=== PATIENT | female | born 1985 | race Caucasian/White ===

== ENCOUNTER → 2020-01-18 14:00 | Outpatient (CLI) | payer BC, SELFPAY ==
[2020-01-18 14:37] LABS: Add Manual Diff / Slide Review NO; Basophils Absolute Auto 0 /uL (0-100); Basophils Percent Auto 0.3 % (0-2); Eosinophils Absolute Auto 0 /uL (0-450); Eosinophils Percent Auto 0.1 % (2-4); Hematocrit 35.8 % (36-46); Hemoglobin 12.3 g/dL (12.0-16.0); Lymphocytes Absolute Auto 900 /uL (1100-4500); Lymphocytes Percent Auto 14.9 % (25-40); Mean Corpuscular HGB Conc 34.3 % (30-36); Mean Corpuscular Hemoglobin 30.1 PG (26-34); Mean Corpuscular Volume 87.6 fL (80-100); Monocytes Absolute Auto 300 /uL (0-900); Monocytes Percent Auto 5.2 % (3-14); Neutrophils Absolute Auto 5000 /uL (1500-7000); Neutrophils Percent Auto 79.5 % (50-75); Platelet Count 246 X10^3/uL (150-400); Red Blood Cell Count 4.09 X10^6/uL (4.0-5.2); Red Cell Distribution Width 13.5 % (11.6-14.8); White Blood Cell Count 6.3 X10^3/uL (4.5-11.0)
[2020-01-18 14:48] LABS: Appearance Urine UA CLEAR; Bilirubin Urine UA NEGATIVE (NEGATIVE); Color Urine UA YELLOW; Glucose Urine UA NEGATIVE (Negative); Ketones Urine UA NEGATIVE (NEGATIVE); Leukocyte Esterase Urine UA TRACE (NEGATIVE); Nitrite Urine UA NEGATIVE (Negative); Occult Blood Urine UA TRACE-LYSED (Negative); Protein Urine UA NEGATIVE (Negative); Specific Gravity Urine UA 1.015 (1.000-1.035); Urobilinogen Urine UA 0.2 E.U./dL (0.2)
[2020-01-18 14:53] LABS: RBC Urine None Seen (0-5/HPF)
[2020-01-18 14:56] LABS: Bacteria Urine Few (2-10); Culture Indicated Urine Cult Not Indicated; Mucus Urine 1+ (Negative); Squamous Epithelial Cell Urine 10-30 /HPF (0-5/HPF); WBC Urine 1-5/HPF (0-5/HPF)
[2020-01-19 05:45] LABS: RPR Screen Non Reactive (Non Reactive)
[2020-01-19 08:09] LABS: Varicella IgG Antibody 2739 index (Immune >165)
[2020-01-20 19:37] LABS: Hepatitis B Surface Antigen NEGATIVE s/c (NEGATIVE); Rubella Antibody IgG 26.5 IU/mL (>15)
[2020-01-20 19:57] LABS: Hep C Virus Ab w/Reflex Quant NEGATIVE s/c (NEGATIVE)
[2020-01-21 16:58] LABS: HIV 1 & 2 Ab/Ag 4th Gen Combo NEGATIVE (NEGATIVE)
== END ==
PROVIDERS: PCP Naturopath; Referring Provider Obstetrics & Gynecology; Visit Provider Obstetrics & Gynecology
DX: Z34.81 Encounter for supervision of other normal pregnancy, first trimester (principal)
CPT/HCPCS: 36415; 80055; 81003; 81015; 86787; 86803; 86850; 86900; 86901; 87077; 87086; 87389

== ENCOUNTER → 2020-01-25 13:10 | Outpatient (CLI) | payer BC, SELFPAY | PROVIDERS: PCP Naturopath; Referring Provider Family Medicine; Visit Provider Family Medicine | DX: Z34.81 Encounter for supervision of other normal pregnancy, first trimester (principal) | CPT/HCPCS: 87086 ==

== ENCOUNTER → 2020-03-06 14:19 | Outpatient (CLI) | payer BC, SELFPAY ==
[2020-03-08 20:36] LABS: AFP, Serum 30.5 ng/mL (.); Estriol, Free 0.51 ng/mL (.); Inhibin A, Dimeric 291.97 pg/mL (.); Inhibin A, MoM 1.71 (.); Maternal Ethnicity Caucasian (.); Maternal Weight 144 lbs (.); Number of Fetuses No (.); OSBR Risk 1 IN 10000 (.); Results Report (.); Test Results *Screen Positive* (.); hCG, Serum 138237 mIU/mL (.)
== END ==
PROVIDERS: PCP Naturopath; Referring Provider Family Medicine; Visit Provider Family Medicine
DX: Z34.81 Encounter for supervision of other normal pregnancy, first trimester (principal); Z3A.13 13 weeks gestation of pregnancy
CPT/HCPCS: 36415; 82105; 82677; 84702; 86336

== ENCOUNTER → 2020-03-14 15:00 | Outpatient (CLI) | payer BC, SELFPAY ==
[2020-03-15 13:59] LABS: Specimen Label Panorama Test Kit
== END ==
PROVIDERS: PCP Naturopath; Referring Provider Family Medicine; Visit Provider Family Medicine
DX: O28.0 Abnormal hematological finding on antenatal screening of mother (principal)
CPT/HCPCS: 36415; 81420

== ENCOUNTER → 2020-05-30 09:26 | Outpatient (CLI) | payer BC, SELFPAY ==
[2020-05-30 11:47] LABS: Add Manual Diff / Slide Review NO; Basophils Absolute Auto 0 /uL (0-100); Basophils Percent Auto 0.1 % (0-2); Eosinophils Absolute Auto 0 /uL (0-450); Eosinophils Percent Auto 0.4 % (2-4); Hematocrit 32.1 % (36-46); Hemoglobin 11.4 g/dL (12.0-16.0); Lymphocytes Absolute Auto 1200 /uL (1100-4500); Lymphocytes Percent Auto 14.1 % (25-40); Mean Corpuscular HGB Conc 35.5 % (30-36); Mean Corpuscular Hemoglobin 32.2 PG (26-34); Mean Corpuscular Volume 90.8 fL (80-100); Monocytes Absolute Auto 400 /uL (0-900); Monocytes Percent Auto 4.4 % (3-14); Neutrophils Absolute Auto 7000 /uL (1500-7000); Platelet Count 210 X10^3/uL (150-400); Red Blood Cell Count 3.54 X10^6/uL (4.0-5.2); Red Cell Distribution Width 13.9 % (11.6-14.8); White Blood Cell Count 8.6 X10^3/uL (4.5-11.0)
[2020-05-30 12:18] LABS: GTT (PREG) 1 Hour PP 50gm Dose 123 mg/dL (76-139)
== END ==
PROVIDERS: PCP Naturopath; Referring Provider Family Medicine; Visit Provider Family Medicine
DX: Z34.90 Encounter for supervision of normal pregnancy, unspecified, unspecified trimester (principal)
CPT/HCPCS: 36415; 82950; 85025

== ENCOUNTER → 2020-06-13 09:42 | Outpatient (CLI) | payer BC, SELFPAY ==
--- NOTE | 2020-06-13 09:43 | DI.US.S_ITS ---
PROCEDURE: US OB LIMITED INDICATIONS: size < dates, f/u placental location OUTSIDE/PRIOR DATING DATA: First dating scan (date and location): 01/18/2020 performed at [facility] . Estimated date of delivery (LETA) from first dating scan: 08/26/2020 . TECHNIQUE: Real-time scanning was performed of the fetus, with image documentation and biometric measurements. Endovaginal scanning: No COMPARISON: None. FINDINGS: General: A single living intrauterine gestation is present. Presentation: Vertex. Placenta: Placental position is anterior , without previa. Amniotic fluid index: 9.0 cm, normal range is 5-24 cm. heart rate: 139 beats per minute. Maternal cervical canal: 5.3 cm long. Normal lower limit is 2.5 cm. biometrics: Biparietal diameter: 27 weeks 4 days Head circumference: 28 weeks 5 Abdominal circumference: 27 weeks 4 Femur length: 29 weeks 3 days Estimated gestational age from initial scan: 29 weeks 3 days Composite gestational age from present scan: 28 weeks 2 days Estimated weight and percentile: 1202 g; 9th percentile Measurement variability for biometric dating: +/- 7 days from 14 weeks to 15 weeks 6 days gestation, +/- 10 days from 16 weeks to 21 weeks 6 days gestation, +/- 2 weeks from 22 weeks to 27 weeks 6 days gestation, +/- 3 weeks for 28 weeks gestation or later. weight reference: 4500 g or EFW >90/95% is considered macrosomia or large for gestational age. EFW <10% is small for gestational age. EFW 5% or less is considered intra-uterine growth restriction. Other: Not applicable. IMPRESSION: Single living IUP redemonstrated and interval growth is less than expected with estimated weight 9th percentile. Dictated by: Saran Gonzalez [facility] Interpreted: Daniella Antonio MD on 06/13/2020 at 15:39 Approved by: Daniella Antonio M.D. on 06/13/2020 at 17:01
== END ==
PROVIDERS: PCP Naturopath; Referring Provider Family Medicine; Visit Provider Family Medicine
DX: O26.843 Uterine size-date discrepancy, third trimester (principal); Z3A.28 28 weeks gestation of pregnancy
CPT/HCPCS: 76815

== ENCOUNTER → 2020-07-11 08:58 | Outpatient (CLI) | payer BC, SELFPAY ==
--- NOTE | 2020-07-11 08:59 | DI.US.S_ITS ---
PROCEDURE: US OB LIMITED INDICATIONS: SGA OUTSIDE/PRIOR DATING DATA: Last menstrual period (LMP): Not available. LMP-based estimated date of delivery (LETA): Not available . First dating scan (date and location): 01/18/20. Estimated date of delivery (LETA) from first dating scan: 08/26/20 . TECHNIQUE: Real-time scanning was performed of the fetus, with image documentation and biometric measurements. Endovaginal scanning: Not needed COMPARISON: [facility], OB LIMITED, 06/13/2020, 10:20. FINDINGS: General: A single living intrauterine gestation is present. Presentation: Vertex. Placenta: Placental position is anterior , without previa. Amniotic fluid index: 11.1 cm, normal range is 5-24 cm. heart rate: 144 beats per minute. Maternal cervical canal: 3.5 cm long. Normal lower limit is 2.5 cm. biometrics: Biparietal diameter: 7.8 cm, 31 weeks 1 day Head circumference: 28.9 cm, 31 weeks 6 days Abdominal circumference: 27.1 cm, 31 weeks 1 day Femur length: 6.4 cm, 32 weeks 6 days Estimated gestational age from initial scan: 33 weeks 3 days Composite gestational age from present scan: 31 weeks 5 days Estimated weight and percentile: 1836 g, 7th percentile Measurement variability for biometric dating: +/- 7 days from 14 weeks to 15 weeks 6 days gestation, +/- 10 days from 16 weeks to 21 weeks 6 days gestation, +/- 2 weeks from 22 weeks to 27 weeks 6 days gestation, +/- 3 weeks for 28 weeks gestation or later. weight reference: 4500 g or EFW >90/95% is considered macrosomia or large for gestational age. EFW <10% is small for gestational age. EFW 5% or less is considered intra-uterine growth restriction. Other: Not applicable. IMPRESSION: The inferior split central margin is 6 cm from the internal os of the cervical canal. No anomaly seen. Single living intrauterine gestation, with current estimated weight at the lower 7th percentile for current gestational age. Amniotic fluid volume is in the normal range. Dictated by: Berto Turcios M.D. on 07/11/2020 at 13:05 Approved by: Berto Turcios M.D. on 07/11/2020 at 13:25
== END ==
PROVIDERS: PCP Naturopath; Referring Provider Family Medicine; Visit Provider Family Medicine
DX: O36.5990 Maternal care for other known or suspected poor fetal growth, unspecified trimester, not applicable or unspecified (principal); Z3A.31 31 weeks gestation of pregnancy
CPT/HCPCS: 76815

== ENCOUNTER → 2020-07-21 08:47 | Outpatient (CLI) | payer BC, SELFPAY ==
[2020-07-22 08:32] LABS: Strep Grp B PCR NEG for Grp B Strep
== END ==
PROVIDERS: PCP Naturopath; Visit Provider Family Medicine
DX: Z34.90 Encounter for supervision of normal pregnancy, unspecified, unspecified trimester (principal); Z3A.35 35 weeks gestation of pregnancy
CPT/HCPCS: 87653

== ENCOUNTER 2020-07-25 19:21 | Outpatient (CLI) | payer BC, SELFPAY ==
--- NOTE | 2020-07-26 08:50 | P.TNLD_ITS ---
Visit Information Visit Information Date of evaluation: 07/25/20 Primary OB Provider: Kerry Dick On-call OB Provider: Kerry Dick Reason for Evaluation: Yes other Comments/Additional reasons for admission: 35yo at 36w1d here for blurry vision and LE edema. Pt reports her vision has been blurry and spotty for several hours, acutely starting. Her swelling has also been significantly worse today. No headache, vision changes, RUQ pain. Feeling baby move regularly. No vaginal bleeding, cramping/contractions, or LOF. [facility] Medical History (Updated 07/26/20 @ 17:03 by Kerry Dick MD) Chicken pox Eczema Endometriosis (~2005) Rosacea (~2016) Small intestinal bacterial overgrowth (~2018) Surgical History (Updated 01/09/20 @ 18:39 by Marta Sherman) Anesthesia History of laparoscopy (~2005) History of tonsillectomy (~2003) [place] teeth removed (~1999) Family History (Updated 01/09/20 @ 18:42 by Marta Sherman) Sister History of bipolar disorder Mental health problem Grandfather Alcoholism Grandfather Cancer Grandmother Alzheimer's disease Stroke Social History marital status: number of children: 1 household members: spouse lives independently: Yes caregiver/support person: No housing: house pets and animals: Yes (1 dog.) education level: college occupational status: employed (Teacher, prev. 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 Yoga & [place]. Frequent walking twice a day. Some hiking.) seatbelt use: always do you feel safe at home: Yes Smoking Status: Never smoker second hand exposure: No alcohol intake: former (Pre- occasionally, social drink maybe once a month.) substance use type: does not use during the past year weight has: remained stable Evaluation Evaluation Baseline heart rate: 120 Variability: Moderate (11-25) monitor accelerations: Present Monitor Decelerations: Absent Category of Tracing: Reactive Diagnosis, Plan/Disposition Final Diagnosis (1) Vision changes: Status: Acute (2) 36 weeks gestation of : Status: Acute Plan/Disposition Plan: at 36w2d here with vision changes and LE edema. Vision changes resolved immediately prior to arrival. BP 118/70 normal range. NST reactive. Pt aware of pre-eclampsia symptoms to be aware of. Safe for d/c home. OB Disposition: home
== END 2020-07-25 20:00 | disposition home or self-care (01) ==
LOC: LABOR 20:29 → OB 07-26 16:34
PROVIDERS: PCP Naturopath; Referring Provider Family Medicine; Visit Provider Family Medicine
DX: O26.893 Other specified pregnancy related conditions, third trimester (principal); H53.8 Other visual disturbances; R60.0 Localized edema; Z3A.36 36 weeks gestation of pregnancy
CPT/HCPCS: 59025; G0378; G0379

== ENCOUNTER 2020-08-04 14:41 | Outpatient (CLI) | payer BC, SELFPAY ==
--- NOTE | 2020-08-04 15:06 | PM.OBTRLD ---
Visit Information Visit Information Date of evaluation: 08/04/20 Primary OB Provider: Kerry Dick Reason for Evaluation: Yes non-stress test Comments/Additional reasons for admission: 35yo here for NST due to SGA. [facility] Medical History (Updated 08/04/20 @ 15:07 by Kerry Dick MD) Chicken pox Eczema Endometriosis (~2005) Rosacea (~2016) Small intestinal bacterial overgrowth (~2018) Surgical History (Updated 01/09/20 @ 18:39 by Marta Sherman) Anesthesia History of laparoscopy (~2005) History of tonsillectomy (~2003) [place] teeth removed (~1999) Family History (Updated 01/09/20 @ 18:42 by Marta Sherman) Sister History of bipolar disorder Mental health problem Grandfather Alcoholism Grandfather Cancer Grandmother Alzheimer's disease Stroke Social History marital status: number of children: 1 household members: spouse lives independently: Yes caregiver/support person: No housing: house pets and animals: Yes (1 dog.) education level: college occupational status: employed (Teacher, prev. 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 Yoga & [place]. Frequent walking twice a day. Some hiking.) seatbelt use: always do you feel safe at home: Yes Smoking Status: Never smoker second hand exposure: No alcohol intake: former (Pre- occasionally, social drink maybe once a month.) substance use type: does not use during the past year weight has: remained stable Evaluation Evaluation Baseline heart rate: 120 Variability: Moderate (11-25) monitor accelerations: Present Monitor Decelerations: Absent Category of Tracing: Reactive Diagnosis, Plan/Disposition Final Diagnosis (1) 37 weeks gestation of : Status: Acute (2) SGA (small for gestational age), , affecting care of mother, antepartum: Status: Acute Plan/Disposition Plan: 35yo at 37w4d here for NST due to SGA. Reactive NST. OB Disposition: home
== END 2020-08-04 15:06 | disposition home or self-care (01) ==
LOC: LABOR 15:01 → OB 08-07 08:29
PROVIDERS: PCP Naturopath; Referring Provider Family Medicine; Visit Provider Family Medicine
DX: O36.5930 Maternal care for other known or suspected poor fetal growth, third trimester, not applicable or unspecified (principal); Z3A.37 37 weeks gestation of pregnancy
CPT/HCPCS: 59025; G0378; G0379

== ENCOUNTER 2020-08-11 14:46 | Outpatient (CLI) | payer BC, SELFPAY ==
--- NOTE | 2020-08-11 14:57 | P.TNLD_ITS ---
Visit Information Visit Information Date of evaluation: 08/11/20 Primary OB Provider: Kerry Dick Reason for Evaluation: Yes non-stress test non-stress test reason: other Comments/Additional reasons for admission: 35yo at 38w4d here for NST due to SGA. [facility] Medical History (Updated 08/11/20 @ 14:27 by Kerry Dick MD) Chicken pox Eczema Endometriosis (~2005) Rosacea (~2016) Small intestinal bacterial overgrowth (~2018) Surgical History (Updated 01/09/20 @ 18:39 by Marta Sherman) Anesthesia History of laparoscopy (~2005) History of tonsillectomy (~2003) [place] teeth removed (~1999) Family History (Updated 01/09/20 @ 18:42 by Marta Sherman) Sister History of bipolar disorder Mental health problem Grandfather Alcoholism Grandfather Cancer Grandmother Alzheimer's disease Stroke Social History marital status: number of children: 1 household members: spouse lives independently: Yes caregiver/support person: No housing: house pets and animals: Yes (1 dog.) education level: college occupational status: employed (Teacher, prev. 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 Yoga & [place]. Frequent walking twice a day. Some hiking.) seatbelt use: always do you feel safe at home: Yes Smoking Status: Never smoker second hand exposure: No alcohol intake: former (Pre- occasionally, social drink maybe once a month.) substance use type: does not use during the past year weight has: remained stable Evaluation Evaluation Baseline heart rate: 120 Variability: Moderate (11-25) monitor accelerations: Present Monitor Decelerations: Absent Category of Tracing: Reactive Diagnosis, Plan/Disposition Final Diagnosis (1) SGA (small for gestational age), , affecting care of mother, antepartum: Status: Acute (2) 38 weeks gestation of : Status: Acute Plan/Disposition Plan: 35yo at 38w4d here for NST due to SGA. Reactive NST. Continue weekly NST. IOL scheduled for 40wks. OB Disposition: home
== END 2020-08-11 15:28 | disposition home or self-care (01) ==
LOC: LABOR 15:28 → OB 08-14 06:51
PROVIDERS: PCP Naturopath; Referring Provider Family Medicine; Visit Provider Family Medicine
DX: O36.5930 Maternal care for other known or suspected poor fetal growth, third trimester, not applicable or unspecified (principal); Z3A.38 38 weeks gestation of pregnancy
CPT/HCPCS: 59025; G0378; G0379

== ENCOUNTER 2020-08-18 15:07 | Outpatient (CLI) | payer BC, SELFPAY ==
--- NOTE | 2020-08-18 15:32 | PM.OBTRLD ---
Visit Information Visit Information Date of evaluation: 08/18/20 Primary OB Provider: Kerry Dick Reason for Evaluation: Yes non-stress test Comments/Additional reasons for admission: 35yo at 39w4d here for NST due to SGA. [facility] Medical History (Updated 08/18/20 @ 16:02 by Kerry Dick MD) Chicken pox Eczema Endometriosis (~2005) Rosacea (~2016) Small intestinal bacterial overgrowth (~2018) Surgical History (Updated 01/09/20 @ 18:39 by Marta Sherman) Anesthesia History of laparoscopy (~2005) History of tonsillectomy (~2003) [place] teeth removed (~1999) Family History (Updated 01/09/20 @ 18:42 by Marta Sherman) Sister History of bipolar disorder Mental health problem Grandfather Alcoholism Grandfather Cancer Grandmother Alzheimer's disease Stroke Social History marital status: number of children: 1 household members: spouse lives independently: Yes caregiver/support person: No housing: house pets and animals: Yes (1 dog.) education level: college occupational status: employed (Teacher, prev. 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 Yoga & [place]. Frequent walking twice a day. Some hiking.) seatbelt use: always do you feel safe at home: Yes Smoking Status: Never smoker second hand exposure: No alcohol intake: former (Pre- occasionally, social drink maybe once a month.) substance use type: does not use during the past year weight has: remained stable Evaluation Evaluation Baseline heart rate: 125 Variability: Moderate (11-25) monitor accelerations: Present Monitor Decelerations: Absent Category of Tracing: Reactive Diagnosis, Plan/Disposition Final Diagnosis (1) SGA (small for gestational age), , affecting care of mother, antepartum: Status: Acute (2) 39 weeks gestation of : Status: Acute Plan/Disposition Plan: 35yo at 39w4d here for NST due to SGA. Reactive. Plan for IOL on 08/20. OB Disposition: home
== END 2020-08-18 15:45 | disposition home or self-care (01) ==
LOC: LABOR 15:16 → OB 08-21 11:24
PROVIDERS: PCP Naturopath; Referring Provider Family Medicine; Visit Provider Family Medicine
DX: O36.5930 Maternal care for other known or suspected poor fetal growth, third trimester, not applicable or unspecified (principal); Z3A.39 39 weeks gestation of pregnancy
CPT/HCPCS: 59025; G0378; G0379

== ENCOUNTER 2020-08-20 18:36 | Inpatient (IN) | payer BC, SELFPAY ==
[2020-08-20] MEDS: DINOPROSTONE VAG (CERVIDIL) 10 MG VAG (19:19)
[2020-08-20 20:04] VITALS: BP 113/75
[2020-08-20 20:38] LABS: Add Manual Diff / Slide Review NO; Basophils Absolute Auto 0 /uL (0-100); Basophils Percent Auto 0.3 % (0-2); Eosinophils Absolute Auto 0 /uL (0-450); Eosinophils Percent Auto 0.3 % (2-4); Hematocrit 33.8 % (36-46); Hemoglobin 11.9 g/dL (12.0-16.0); Lymphocytes Absolute Auto 2200 /uL (1100-4500); Lymphocytes Percent Auto 25.7 % (25-40); Mean Corpuscular HGB Conc 35.2 % (30-36); Mean Corpuscular Hemoglobin 32.4 PG (26-34); Mean Corpuscular Volume 92.2 fL (80-100); Monocytes Absolute Auto 500 /uL (0-900); Monocytes Percent Auto 5.7 % (3-14); Neutrophils Absolute Auto 6000 /uL (1500-7000); Platelet Count 199 X10^3/uL (150-400); Red Blood Cell Count 3.66 X10^6/uL (4.0-5.2); Red Cell Distribution Width 13.9 % (11.6-14.8); White Blood Cell Count 8.8 X10^3/uL (4.5-11.0)
[2020-08-20 20:52] LABS: COVID19 - ADMIT (NP swab/PCR) Negative (Negative)
--- NOTE | 2020-08-21 08:16 | PM.OBHP.1 ---
OB HPI Date/Time Date of admission: 08/20/20 Date Patient Seen: 08/21/20 Time Patient Seen: 07:45 History of Present Condition Chief complaint: EVAL OF LABOR : 2 Para: 1 Estimated Date of Delivery: 08/21/20 Estimated Gestational Age (weeks): 40w0d Narrative: Tom Swanson is a 35 year old at 40w0d here for IOL due to SGA. Indications Indication for induction OB: other (SGA, MFM recommendations) History of Present care: good care, initiated at week # (9) and pounds weight gain (18) Dating criteria: LMP confirmed by 1st trimester US Ultrasounds: normal 1st trimester US and normal mid trimester US Obstetrical complications: growth restriction (SGA - 14th percentile at last u/s at 35w4d) Preadmission Labs Blood type: A (-) negative -: Antibody screen: negative, Cystic fibrosis screen: negative, GBS status: negative, HBsAG: negative, HIV: negative and RPR/VDLR: negative -: Rubella: immune and Varicella: immune HCT: 32.1 HCAB: negative Quad screen: Abnormal (positive for down syndrome) Cell-free DNA: Negative Urine: Negative 1 hr GTT: 123 Prior (ies) History: 03/06/16 - at 41w3d, 8lb4oz female Evaluation Evaluation Baseline heart rate: 120 Variability: Moderate (11-25) monitor accelerations: Present Monitor Decelerations: Absent Status: Category l Cervical dilation (cm): 1 Cervical effacement (%): 50 station: -3 Laboratory results: Laboratory Tests 08/20/20 08/20/20 08/20/20 19:45 19:45 19:45 WBC 8.8 RBC 3.66 L Hgb 11.9 L Hct 33.8 L MCV 92.2 MCH 32.4 MCHC 35.2 RDW 13.9 Plt Count 199 Neut % (Auto) 68.0 Lymph % (Auto) 25.7 [place] % (Auto) 5.7 Eos % (Auto) 0.3 L Baso % (Auto) 0.3 Neut # (Auto) 6000 Lymph # (Auto) 2200 [place] # (Auto) 500 Eos # (Auto) 0 Baso # (Auto) 0 SARS-CoV-2 (PCR) Negative Blood Type A Negative Antibody Screen Negative PFSH Medical History Chicken pox Eczema Endometriosis (~2005) Rosacea (~2016) Small intestinal bacterial overgrowth (~2018) Surgical History Anesthesia History of laparoscopy (~2005) History of tonsillectomy (~2003) [place] teeth removed (~1999) Family History Sister History of bipolar disorder Mental health problem Grandfather Alcoholism Grandfather Cancer Grandmother Alzheimer's disease Stroke Social History marital status: number of children: 1 household members: spouse lives independently: Yes caregiver/support person: No housing: house pets and animals: Yes (1 dog.) education level: college occupational status: employed (Teacher, [employer]-6 special ed; 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 Yoga & [place]. Frequent walking twice a day. Some hiking.) seatbelt use: always do you feel safe at home: Yes Smoking Status: Never smoker second hand exposure: No alcohol intake: former (Pre- occasionally, social drink maybe once a month.) substance use type: does not use during the past year weight has: remained stable Meds Home Medications and Allergies Home Medications Medication Instructions Recorded Confirmed Type lactobacillus combination no.9 4 4,000 mmu cells PO DAILY cap 01/13/20 01/13/20 History billion cell capsule prenat.vits,dean,gjc-[id number] 1 tab PO DAILY 01/13/20 08/20/20 History Allergies Allergy/AdvReac Type Severity Reaction Status Date / Time Penicillins Allergy Intermediate Hives & Verified 08/20/20 20:01 vomiting. Age 7. gluten AdvReac Mild Constipation, Verified 08/20/20 20:01 upset stomach Milk Containing Products AdvReac Mild Constipation, Verified 08/20/20 20:01 upset stomach, mild rash. Exam Const General: cooperative, healthy appearing and comfortable Orientation: alert, awake and oriented x3 Resp Effort & Inspection: normal respiratory effort Auscultation: clear to auscultation bilaterally Cardio Rate: regular rate Rhythm: regular rhythm Heart Sounds: S1 normal, S2 normal and no murmurs GI Inspection: non-distended Palpation: soft and No tender Other: gravid Presentation: vertex Extrem General: no clubbing, cyanosis or edema Objective Labs Result Diagrams: 08/20/20 19:45 Labs: Laboratory Results - last 24 hr 08/20/20 08/20/20 08/20/20 19:45 19:45 19:45 WBC 8.8 RBC 3.66 L Hgb 11.9 L Hct 33.8 L MCV 92.2 MCH 32.4 MCHC 35.2 RDW 13.9 Plt Count 199 Neut % (Auto) 68.0 Lymph % (Auto) 25.7 [place] % (Auto) 5.7 Eos % (Auto) 0.3 L Baso % (Auto) 0.3 Neut # (Auto) 6000 Lymph # (Auto) 2200 [place] # (Auto) 500 Eos # (Auto) 0 Baso # (Auto) 0 SARS-CoV-2 (PCR) Negative Blood Type A Negative Antibody Screen Negative Assessment and Plan Assessment and Plan Assessment and Plan narrative: 35yo at 40w0d here for IOL at recommendation of MFM due to SGA. Received cervidil overnight, with minimal cervical change. After informed consent, graham catheter placed and inflated with 60cc of NS. GBS negative, Rh negative ( Rh negative as well). - Expectant management, anticipate - Graham in place with gentle traction. Will remain for max 12hrs. Low dose pitocin simultaneously. - FHT reassuring - GBS negative, no prophylaxis indicated - Epidural for pain control when desired
[2020-08-21] MEDS: LACTATED RINGERS 1,000 ML 100 ML IV ×2 (09:04→16:42)
[2020-08-21] MEDS: OXYTOCIN PREMIX 30 UNIT/500 ML PLAST..BAG IV (09:05)
--- NOTE | 2020-08-21 13:17 | PM.OBPNLAB ---
Date/Time Date Patient Seen: 08/21/20 Time Patient Seen: 12:50 Pain Control Pain control: tolerating well Pelvic Exam Dilation (cm): 3 Effacement (%): 75 station: -2 Amniotic membrane status: Ruptured Comments: After informed consent, AROM performed with production of clear fluid Contractions Pitocin rate (mU/min): 3 Contraction frequency (min): 4 Contraction pattern: Irregular Contraction phase: Resting Contraction intensity: Moderate Status status: Category l Heart Rate Baseline: 120 Monitor Accelerations: Present Monitor Decelerations: Absent Monitor Variability: Moderate Assessment and Plan Comments: 35yo at 40w0d here for IOL at recommendation of MFM due to SGA. Received cervidil overnight, with minimal cervical change. [place] catheter placed, that fell out. AROM performed with production of clear fluid. GBS negative, Rh negative ( Rh negative as well). - Expectant management, anticipate - Continue pitocin, titrate as tolerated - FHT reassuring - GBS negative, no prophylaxis indicated - Epidural for pain control when desired
[2020-08-21 14:40] VITALS: TEMP 36.7
[2020-08-21] MEDS: ACETAMINOPHEN 325 MG TABLET 650 MG PO (14:40)
[2020-08-21] MEDS: LIDOCAINE 1% 20 ML (20:10)
--- NOTE | 2020-08-21 20:30 | PM.OBPRVD ---
Events: Labor Induction Labor & Delivery Delivery date: 08/21/20 Intrapartal Events: None Cervical ripening method: per Cervidil protocol (followed by graham bulb) Induction method: per pitocin protocol Delivery augmentation: rupture of membranes Delivery monitor: external FHT Route of delivery: Episiotomy description: None L&D Laceration Description: Perineal - 2nd Degree Delivery repair: vicryl (2-O) Estimated blood loss (mL): 300 Anesthesia Type: Epidural Complications: None Narrative: PROCEDURE: at 40w0d presented for IOL due to SGA and was admitted to Labor and Delivery. She received Cervidil followed by a graham catheter for induction. The patient progressed through the 1st stage over 6 hours. Pitocin was titrated, and AROM was performed with production of clear fluid. Pain was controlled with an epidural. The patient progressed through the 2nd stage over 30 minutes and delivered a viable female infant with APGARs 8/8 at 19:56 via without complications. The cord was clamped and cut after it stopped pulsating. The perineum and vagina were inspected with 2nd degree laceration repaired with 2-O Vicryl. The placenta was delivered with gentle cord traction. Of note, the placenta was noted to have the appearance of a marginal cord insertion. PREPROCEDURE DIAGNOSIS: Intrauterine at 40w0d SGA GBS negative RH negative POSTPROCEDURE DIAGNOSIS: Intrauterine at 40w0d, delivered Same as preprocedure Baby 1: Infant gender: Female Presentation: vertex Position: Left Occiput Anterior Placenta delivery description: Spontaneous Cord Vessel Description: 3 Vessels score (1 min): 8 score (5 min): 8 weight: 5 lb 10 oz Plan for aftercare: Routine care
[2020-08-21] MEDS: DERMOPLAST SPRAY 20% 60 ML 1 SPRAY TOP (22:35)
[2020-08-21] MEDS: IBUPROFEN 600 MG TABLET PO (22:36)
[2020-08-22] MEDS: IBUPROFEN 600 MG TABLET PO (09:45)
[2020-08-22] MEDS: PRENATAL VIT,CALC/IRON/FOLIC 1 TABLET 1 TAB PO (09:45)
[2020-08-22] MEDS: DOCUSATE 100 MG CAPSULE PO (09:45)
[2020-08-22] MEDS: ACETAMINOPHEN 325 MG TABLET 650 MG PO (09:46)
--- NOTE | 2020-08-22 13:10 | P.DS_ITS ---
Discharge Providers Provider Date of admission: 08/20/20 18:36 Discharge Date: 08/22/20 Primary care physician: Addie Floyd ND Consults: 08/22/20 20:27 Consult to Control Area Operator Routine Comment: Discharge provider: Kerry Dick MD Summary Hospital Course Date Patient Seen: 08/22/20 Time Patient Seen: 07:45 Diagnoses: 40w0d gestation SGA Spontaneous vaginal delivery Hospital Course: The pt presented for IOL for SGA. She received cervidil and then had a graham placed. The graham fell out, and pitocin was titrated up. AROM was performed with clear fluid present. She had an epidural for pain control. She progressed to complete and had an of a viable baby girl on 08/21/20. A 2nd degree perineal laceration was then repaired. , there were no complications. On the time of discharge she was voiding, ambulating, passing flatus without difficulty. Her lochia was decreasing appropriately. She is breast-feeding wit h good latch Her pain was well controlled. She will follow-up in 6 weeks for check. She is considering Micronor for contraception, however her also had a vasectomy. Peripartum Data Delivery Method: Natural Vaginal Laceration Description: Perineal - 2nd Degree Episiotomy description: None Procedures: Spontaneous vaginal delivery complications: none 1: Gender: Female Disposition of : home Discharge Diagnosis (1) SGA (small for gestational age), , affecting care of mother, antepartum: Status: Acute (2) Spontaneous vaginal delivery: Status: Acute Status at Discharge Cognitive/behavioral status at discharge: oriented Functional status at discharge: independent ambulation Overall status at discharge: patient is progressing back to baseline Time Spent with Patient Time attestation: Total time spent providing and/or coordinating discharge services: Objective Labs Result Diagrams: 08/20/20 19:45 Discharge Plan Discharge Plan Patient Disposition: Home Discharge orders & Medications Prescriptions: New docusate sodium [DOK] 100 mg Capsule 100 mg PO DAILY Qty: 30 RF: 0 acetaminophen 325 mg Tablet 650 mg PO Q6HR PRN (Reason: Pain, Mild (1-3)) Qty: 30 RF: 0 ibuprofen 600 mg Tablet 600 mg PO Q6HR PRN (Reason: Pain, Mild (1-3)) Qty: 30 RF: 0 Continued prenat.vits,dean,bha-bocw-pjaea Tablet 1 tab PO DAILY RF: 0 Adult 50 Plus Probiotic 4 billion cell capsule 4,000 mmu cells PO DAILY RF: 0 Follow up/Referrals: Addie Floyd ND [Primary Care Provider] - Kerry Dick MD [Physician] - 6 Weeks Diet/Activity/Treatments Diet: Diet as Tolerated and Regular Skin/Wound/Dressing Care Report to your healthcare provider any signs of infection, such as:: chills, fever, increased pain and unusual drainage Visit Report/Discharge Packet Instructions: DI for Labor and Delivery, Vaginal Visit Report Forms: Patient Portal/API, Stroke Signs & Symptoms Discharge Data Primary Care Provider: Addie Floyd
[2020-08-22 15:24] VITALS: BP 115/78; PULSE 84; RESP 16; TEMP 36.8
== END 2020-08-22 18:21 | disposition home or self-care (01) | DRG 807 ==
PROVIDERS: Admitting Provider Family Medicine; PCP Naturopath; Referring Provider Family Medicine; Visit Provider Family Medicine
DX: O48.0 Post-term pregnancy (principal); Z37.0 Single live birth; O36.5930 Maternal care for other known or suspected poor fetal growth, third trimester, not applicable or unspecified; Z3A.40 40 weeks gestation of pregnancy; O70.1 Second degree perineal laceration during delivery; Z20.822 Contact with and (suspected) exposure to COVID-19
CPT/HCPCS: 01967; 36415; 59025; 59050; 59200; 59400; 85025; 86850; 86900; 86901; 87635; C9803; G0379; J2590

== ENCOUNTER → 2022-11-27 08:21 | Outpatient (CLI) | payer BC, SELFPAY ==
--- NOTE | 2022-11-27 | DI.MG.S_ITS ---
BILATERAL DIGITAL DIAGNOSTIC MAMMOGRAM 3D/2D SHORT-TERM FOLLOW-UP: 11/27/2022 CLINICAL: Late short term follow of the Left breast; pre surgical planniing. Comparison is made to exams dated: 04/13/2019 mammogram, 09/21/2018 mammogram, 04/13/2019 ultrasound, and 09/21/2018 ultrasound - outside location. Both breasts are extremely dense, which lowers the sensitivity of mammography (category d />75% glandular tissue). There is a focal asymmetry in the left breast at 1 o'clock posterior depth. This is less prominent. No mass or cyst seen on prior US. No other significant masses, calcifications, or other findings are seen in either breast. IMPRESSION: BENIGN There is no mammographic evidence of malignancy. The focal asymmetry in the left breast is consistent with fibroglandular tissue and is benign. A 4 year screening mammogram is recommended. Exam findings were conveyed to the patient. Based on the Tyrer Cuzick model (a risk assessment model) the patient's lifetime risk is 13.4% and her 10 year risk is 1.1%. According to the ACR, ACS, and NCCN guidelines, an annual breast MRI exam along with mammogram is recommended if the patient's lifetime risk is 20% or greater. This exam was interpreted at Station ID: [id number]. NOTE: For mammograms, a report in lay terms will be sent to the patient. Approximately 15% of breast malignancies will not be visualized mammographically. In the management of a palpable breast mass, a negative mammogram must not discourage biopsy of a clinically suspicious lesion. Electronically Signed By: Jose Peck M.D. slc/:11/27/2022 09:36:46 letter sent: Normal Exam ACR BI-RADS Category 2: Benign Finding(s) 3342F
== END ==
PROVIDERS: PCP Naturopath; Referring Provider Surgery; Visit Provider Surgery
DX: Z01.818 Encounter for other preprocedural examination (principal); R92.8 Other abnormal and inconclusive findings on diagnostic imaging of breast; N64.89 Other specified disorders of breast
CPT/HCPCS: 77066; G0279

== ENCOUNTER → 2023-08-08 07:06 | Outpatient (CLI) | payer BC, SELFPAY ==
[2023-08-08 08:24] LABS: Add Manual Diff / Slide Review NO; Basophils Absolute Auto 0 /uL (0-100); Basophils Percent Auto 0.7 % (0-2); Eosinophils Absolute Auto 100 /uL (0-450); Hematocrit 36.9 % (36-46); Hemoglobin 12.9 g/dL (12.0-16.0); Lymphocytes Absolute Auto 1700 /uL (1100-4500); Lymphocytes Percent Auto 29.5 % (25-40); Mean Corpuscular Hemoglobin 29.6 PG (26-34); Mean Corpuscular Volume 84.8 fL (80-100); Monocytes Absolute Auto 400 /uL (0-900); Monocytes Percent Auto 7.2 % (3-14); Neutrophils Absolute Auto 3600 /uL (1500-7000); Neutrophils Percent Auto 61.6 % (50-75); Platelet Count 293 X10^3/uL (150-400); Red Blood Cell Count 4.35 X10^6/uL (4.0-5.2); Red Cell Distribution Width 13.7 % (11.6-14.8); White Blood Cell Count 5.8 X10^3/uL (4.5-11.0)
[2023-08-08 08:48] LABS: Alanine Aminotransferase 12 IU/L (<35); Albumin 4.5 g/dL (3.5-5.0); Albumin Globulin Ratio 1.8 (1.0-2.8); Alkaline Phosphatase 64 U/L (38-126); Aspartate Aminotransferase 20 IU/L (14-36); BUN Creatinine Ratio 13.2 (6-22); Bilirubin Total 0.6 mg/dL (0.2-1.3); Blood Urea Nitrogen 10 mg/dL (7-17); Calcium 9.2 mg/dL (8.4-10.2); Carbon Dioxide 24 mmol/L (22-32); Chloride 108 mmol/L (98-107); Cholesterol 215 mg/dL (140-199); Estimated Glomerular Filt Rate > 60 mL/min (>60); Globulin 2.5 g/dL (1.7-4.1); Glucose 86 mg/dL (70-100); HDL Cholesterol 53 mg/dL (40-60); HEMOLYSIS < 15 (0-50); LDL Cholesterol Calculated 144 mg/dL (<100); Potassium 3.9 mmol/L (3.4-5.1); Sodium 139 mmol/L (137-145); Triglycerides 89 mg/dL (35-150)
[2023-08-08 08:58] LABS: Free T3, Triiodothyronine Free 3.64 pg/mL (2.77-5.27); Free T4, Direct Thyroxine 1.26 ng/dL (0.78-2.19)
[2023-08-08 09:19] LABS: Ferritin 8 ng/mL (6-137)
[2023-08-10 06:41] LABS: Thyroid Peroxidase Antibodies <9 IU/mL (0-34)
== END ==
PROVIDERS: PCP Naturopath; Referring Provider Naturopath; Visit Provider Naturopath
DX: Z00.00 Encounter for general adult medical examination without abnormal findings (principal); E61.1 Iron deficiency; R53.83 Other fatigue
CPT/HCPCS: 36415; 80053; 80061; 82728; 84439; 84443; 84481; 85025; 86376

== ENCOUNTER → 2024-01-02 10:06 | Outpatient (CLI) | payer BC, SELFPAY ==
[2024-01-02 10:54] LABS: Hematocrit 38.4 % (36-46); Hemoglobin 13.6 g/dL (12.0-16.0)
[2024-01-02 11:21] LABS: Cholesterol 247 mg/dL (140-199); HDL Cholesterol 58 mg/dL (40-60); LDL Cholesterol Calculated 173 mg/dL (<100); Triglycerides 80 mg/dL (35-150)
[2024-01-02 11:54] LABS: Ferritin 88 ng/mL (6-137)
[2024-01-03 04:09] LABS: Apolipoprotein B 117 mg/dL (<90)
[2024-01-06 16:36] LABS: Lipoprotein (a) 39.6 nmol/L (<75.0)
== END ==
PROVIDERS: PCP Naturopath; Referring Provider Naturopath; Visit Provider Naturopath
DX: E78.00 Pure hypercholesterolemia, unspecified (principal); E61.1 Iron deficiency
CPT/HCPCS: 36415; 80061; 82172; 82728; 83695; 85014; 85018

== ENCOUNTER → 2024-05-28 10:40 | Outpatient (CLI) | payer SELFPAY ==
[2024-05-28 11:35] LABS: Hematocrit 37.6 % (36-46); Hemoglobin 13.2 g/dL (12.0-16.0); Mean Corpuscular HGB Conc 35.1 % (30-36); Mean Corpuscular Hemoglobin 31.2 PG (26-34); Mean Corpuscular Volume 88.8 fL (80-100); Platelet Count 286 X10^3/uL (150-400); Red Blood Cell Count 4.23 X10^6/uL (4.0-5.2); White Blood Cell Count 5.9 X10^3/uL (4.5-11.0)
[2024-05-28 12:02] LABS: Cholesterol 140 mg/dL (140-199); HDL Cholesterol 57 mg/dL (40-60); LDL Cholesterol Calculated 72 mg/dL (<100); Triglycerides 54 mg/dL (35-150)
[2024-05-28 12:36] LABS: Ferritin 35 ng/mL (6-137)
== END ==
PROVIDERS: PCP Naturopath; Referring Provider Naturopath; Visit Provider Naturopath
DX: E78.00 Pure hypercholesterolemia, unspecified (principal); E61.1 Iron deficiency
CPT/HCPCS: 36415; 80061; 82728; 85027